=== PATIENT | female | born 1960 | race Hispanic/Latino ===

== ENCOUNTER 2024-07-28 23:08 | Emergency (ER) | payer OTHER ==
[~2024-07-28] VITALS: Ht 157.5 cm; Wt 67.1 kg
[~2024-07-28 23:08] MED LIST: ASPIRIN EC81 MG PO; ATORVASTATIN CA20 MG PO; COZAAR25 MG PO; ESIDRIX25 MG PO; FAMOTIDINE20 MG PO; LOPRESSOR25 MG PO; NAPROSYN250 MG; VALIUM5 MG; lisino
[2024-07-29 00:21] VITALS: PULSE 56; RESP 16; TEMP 98.3; O2SAT 100
== END 2024-07-29 00:25 | disposition home or self-care (01) ==
LOC: ER 23:17
DX: I10 Essential (primary) hypertension (principal); E78.00 Pure hypercholesterolemia, unspecified; R94.31 Abnormal electrocardiogram [ECG] [EKG]; Z85.42 Personal history of malignant neoplasm of other parts of uterus
CPT/HCPCS: 93005; 99282